=== PATIENT | female | born 1985 | race Caucasian/White ===

== ENCOUNTER 2019-09-20 09:58 | Outpatient (CLI) | payer BC ==
[~2019-09-20 09:58] MED LIST: birth control pills
[2019-09-20] MEDS ORDERED: IOHEXOL 50 ML IV ONE (10:26)
== END 2019-09-20 21:05 | disposition home or self-care (01) ==
LOC: SRD 09:58
PROVIDERS: ATTEND Specialist
DX: N92.6 Irregular menstruation, unspecified (principal); E28.2 Polycystic ovarian syndrome; N73.6 Female pelvic peritoneal adhesions (postinfective)
CPT/HCPCS: 74740; C1751; Q9967